=== PATIENT | female | born 1970 | race Caucasian/White ===

== ENCOUNTER 2016-04-11 18:28 | Emergency (ER) | payer MEDICARE, MEDICAID ==
[2016-04-11 19:13] VITALS: BP 126/69
--- NOTE | 2016-04-11 20:09 | UC ---
Headache HPI - HPI Summary HPI Summary: The patient comes in today for: 1. Headache: Onset: 2-3 hours ago. Palliative/provocative: Nothing makes it better or worse. Quality:Throbbing (but calmed down at this time). Region: Posterior head. Severity: Initially: 10/10 pain. Now she states that it is 7/10. She appears more like 4/10 since she is animated and laughing at times. Time: Constant. Associated symptoms: Fever: None. Weakness/numbness: none nor any focal neurologic complaint. Injury: None. Previous treatment: None. * - History Of Current Complaint Chief Complaint: UCGeneralIllness Stated Complaint: HEADACHE Time Seen by Provider: 04/11/16 19:59 Hx Obtained From: Patient Hx Last Menstrual Period: 04/04/16 ?: No - Allergies/Home Medications Allergies/Adverse Reactions: Allergies Allergy/AdvReac Type Severity Reaction Status Date / Time No Known Allergies Allergy Verified 12/29/12 12:18 Home Medications: Home Medications Aspirin [Eql Aspirin Low Dose] 81 mg PO DAILY 04/11/16 [History Confirmed ] Fluticasone-Salmeterol 100-50* [Advair Diskus 100-50*] 1 puff INH BID 04/11/16 [ History Confirmed 04/11/16] PMH/Surg Hx/FS Hx/Imm Hx Previously Healthy: No Endocrine History Of: Denies: Diabetes, Thyroid Disease Cardiovascular History Of: Denies: Cardiac Disorders, Hypertension, Pacemaker/ICD, Myocardial Infarction , Congestive Heart Failure, Atrial Fibrillation, Deep Vein Thrombosis, Bleeding Disorders Respiratory History Of: Reports: Asthma Denies: COPD GI/ History Of: Reports: Gastroesophageal Reflux Denies: Ulcer, Gastrointestinal Bleed, Gall Bladder Disease, Kidney Stones, Diverticulitis, Renal Disease, Urosepsis Neurological History Of: Reports: CVA - "I had a small stroke." Been on ASA ever since. Denies: TIA, Dementia, Seizures, Migraine Psychological History Of: Denies: Anxiety, Depression, Bipolar Disorder, Schizophrenia, Post Traumatic Stress Disorder Cancer History Of: Denies: Lung Cancer, Colorectal Cancer, Breast Cancer, Prostate Cancer, Cervical Cancer Other History Of: Anticoagulant Therapy - She takes asa daily. Negative For: HIV, Hepatitis B, Hepatitis C - Surgical History Surgical History: Yes Surgery Procedure, Year, and Place: TUBAL LIGATION, APPENDECTOMY,TONSILETOMY - Family History Known Family History: Positive: Cardiac Disease, Hypertension - Social History Occupation: Unemployed Alcohol Use: None Substance Use Type: None Smoking Status (MU): Never Smoked Tobacco Review of Systems Constitutional: Negative Skin: Negative Eyes: Negative ENT: Negative Respiratory: Negative Cardiovascular: Negative Gastrointestinal: Negative Genitourinary: Negative Neurological: Headache All Other Systems Reviewed And Are Negative: Yes Physical Exam Triage Information Reviewed: Yes Appearance: Well-Appearing, No Pain Distress, Well-Nourished Vital Signs: Initial Vital Signs Temp 98.1 F 04/11/16 19:07 Pulse 88 04/11/16 19:07 Resp 16 04/11/16 19:07 BP 126/69 04/11/16 19:07 Pulse Ox 100 04/11/16 19:07 Vital Signs Reviewed: Yes Eyes: Positive: Conjunctiva Clear. Negative: Discharge ENT: Positive: Hearing grossly normal. Negative: Pharyngeal erythema, Nasal congestion, Nasal drainage, TM bulging, TM dull, TM red, Tonsillar swelling, Tonsillar exudate Dental: Negative: Gross Decay/Caries @, Dental Fracture @ Neck: Positive: Supple, Nontender, No Lymphadenopathy. Negative: Nuchal Rigidity Respiratory: Positive: Chest non-tender, Lungs clear, No respiratory distress, No accessory muscle use. Negative: Crackles, Wheezing Cardiovascular: Positive: RRR, No Murmur Abdomen Description: Positive: Nontender, No Organomegaly, Soft. Negative: Distended, Guarding Musculoskeletal: Positive: Strength Intact, ROM Intact, No Edema Neurological: Positive: Alert, Muscle Tone Normal, Other: - Neurologic exam: Inspection: No fasciculations. Muscular tone: Normal Strength: Upper and lower extremities symmetrical and appropriate for age. Cranial nerves: II through XII were normal. Reflexes: Upper extremity: biceps: 2+/2 x 2, triceps: 2+/2 x 2, brachioradialis: 2+/2 x 2 Lower extremity: Patellar: 2+ /2 x 2, Achilles: 2+/2 x 2 Gait: Normal Coordination: Upper: Finger to nose and alternating palms on thighs: Normal Lower: Heel along martinse: Normal [place]: Normal Psychological: Positive: Age Appropriate Behavior, Consolable Skin: Negative: rashes, breakdown Headache Course/Dx - Course Course Of Treatment: Patient is not a canidate for NSAIDS because of being on aspirin. - Differential Dx/Diagnosis Differential Diagnosis/HQI/PQRI: Sinus Headache, Tension Headache Provider Diagnoses: Tension headache. Discharge - Discharge Plan Condition: Stable Disposition: HOME Patient Education Materials: General Headache (ED) Referrals: Melly Cain PA [Primary Care Provider] - 1 Week (Please see your primary care provider in about a week to see how well you are doing. If you get worse, please be seen sooner.)
== END 2016-04-11 20:35 | disposition home or self-care (01) ==
LOC: UCCORT 18:28
DX: G44.209 Tension-type headache, unspecified, not intractable (principal); Z79.82 Long term (current) use of aspirin
CPT/HCPCS: 99202; G0463

== ENCOUNTER 2017-10-29 09:46 | Emergency (ER) | payer MEDICARE, MEDICAID ==
[2017-10-29 10:08] VITALS: BP 129/83
--- NOTE | 2017-10-29 10:25 | ED ---
Throat Pain/Nasal Congestion - HPI Summary HPI Summary: 47 yr old female with the complaint of sinus pain, post nasal drip, green nasal discharge and now right ear pain. Onset over the past week. No fever or chills. No dizziness. She is a smoker. Symptoms are moderate. - History of Current Complaint Chief Complaint: UCGeneralIllness Time Seen by Provider: 10/29/17 10:17 - Allergies/Home Medications Allergies/Adverse Reactions: Allergies Allergy/AdvReac Type Severity Reaction Status Date / Time No Known Allergies Allergy Verified 10/29/17 10:08 PMH/Surg Hx/FS Hx/Imm Hx Endocrine/Hematology History: Reports: Hx Anticoagulant Therapy - She takes asa daily. Denies: Hx Diabetes, Hx Thyroid Disease Cardiovascular History: Denies: Hx Congestive Heart Failure, Hx Deep Vein Thrombosis, Hx Hypertension , Hx Myocardial Infarction, Hx Pacemaker/ICD Respiratory History: Reports: Hx Asthma Denies: Hx Chronic Obstructive Pulmonary Disease (COPD), Hx Lung Cancer GI History: Denies: Hx Gall Bladder Disease, Hx Gastrointestinal Bleed, Hx Ulcer, Hx Urosepsis History: Denies: Hx Kidney Stones, Hx Renal Disease Neurological History: Denies: Hx Dementia, Hx Migraine, Hx Seizures, Hx Transient Ischemic Attacks (TIA) Psychiatric History: Denies: Hx Anxiety, Hx Depression, Hx Schizophrenia, Hx Bipolar Disorder - Surgical History Surgery Procedure, Year, and Place: TUBAL LIGATION, APPENDECTOMY,TONSILETOMY Infectious Disease History: No Infectious Disease History: Denies: Hx Hepatitis, Hx Human Immunodeficiency Virus (HIV), Traveled Outside the [place] in Last 30 Days - Family History Known Family History: Positive: Cardiac Disease, Hypertension - Social History Occupation: Employed Full-time Alcohol Use: None Substance Use Type: Reports: None Smoking Status (MU): Never Smoked Tobacco Review of Systems Constitutional: Negative Positive: Ear Ache, Other - sinus pain All Other Systems Reviewed And Are Negative: Yes Physical Exam Triage Information Reviewed: Yes Vital Signs On Initial Exam: Initial Vitals Temp Pulse Resp BP Pulse Ox 97.7 F 69 18 129/83 99 10/29/17 10:02 10/29/17 10:02 10/29/17 10:02 10/29/17 10:02 10/29/17 10:02 Vital Signs Reviewed: Yes Appearance: Positive: Well-Appearing, No Pain Distress Skin: Positive: Warm, Skin Color Reflects Adequate Perfusion Head/Face: Positive: Normal Head/Face Inspection Eyes: Positive: EOMI ENT: Positive: Normal ENT inspection, Pharynx normal, TM red - right, Sinus tenderness. Negative: Muffled voice, Hoarse voice Neck: Positive: Nontender Respiratory/Lung Sounds: Positive: Clear to Auscultation, Breath Sounds Present Cardiovascular: Positive: RRR. Negative: Murmur Abdomen Description: Negative: CVA Tenderness (R), CVA Tenderness (L) Musculoskeletal: Positive: Strength/ROM Intact Neurological: Positive: Sensory/Motor Intact, Alert, Oriented to Person Place, Time, CN Intact II-III, Normal Gait, Speech Normal Psychiatric: Positive: Normal - [place] Coma Scale Best Eye Response: 4 - Spontaneous Best Motor Response: 6 - Obeys Commands Best Verbal Response: 5 - Oriented Coma Scale Total: 15 Diagnostics - Vital Signs Vital Signs Temp Pulse Resp BP Pulse Ox 10/29/17 10:02 97.7 F 69 18 129/83 99 - Laboratory Lab Statement: Any lab studies that have been ordered have been reviewed, and results considered in the medical decision making process. EENT Course/Dx - Course Course Of Treatment: 47 yr old female with sinusitis, and otitis media - Diagnoses Provider Diagnoses: Sinusitis, Otitis media Discharge - Sign-Out/Discharge Documenting (check all that apply): Patient Departure All imaging exams completed and their final reports reviewed: No Studies - Discharge Plan Condition: Good Disposition: HOME Prescriptions: Cefdinir [Cefdinir 300 MG CAP] 300 mg PO BID #20 cap Patient Education Materials: Ear Infection (ED), Sinusitis (ED) Referrals: Melly Cani PA [Primary Care Provider] - 2 Days - Billing Disposition and Condition Condition: GOOD Disposition: Home
== END 2017-10-29 10:26 | disposition home or self-care (01) ==
LOC: UCCORT 09:46
DX: J32.9 Chronic sinusitis, unspecified (principal); H66.91 Otitis media, unspecified, right ear
CPT/HCPCS: 99212; G0463

== ENCOUNTER 2018-05-28 11:34 | Emergency (ER) | payer MEDICARE, MEDICAID ==
[2018-05-28 12:06] VITALS: BP 120/80
--- NOTE | 2018-05-28 12:34 | UC ---
Throat Pain/Nasal Jagjit HPI - HPI Summary HPI Summary: Patient presents to urgent care reporting 10-11 days of progressive sinus pressure face pain postnasal drip. Patient states over the last 3 days is return to thick green with a little bit of bloody mucus. Patient states she's got a history of recurrent sinus infections and is supposed to have sinus surgery Dr. Asif but is resisting. Patient has been taking her Flonase as prescribed. Patient has not taken any other medication. Patient without any fevers. Patient with mild ear fullness and popping. No nausea vomiting. No abdominal pain. Patient states she's not pertinent care. Medications reviewed this visit. - History of Current Complaint Chief Complaint: UCGeneralIllness Stated Complaint: SINUS CONCERN Time Seen by Provider: 05/28/18 12:19 Hx Obtained From: Patient Hx Last Menstrual Period: 05/20/18 Pain Intensity: 4 - Allergies/Home Medications Allergies/Adverse Reactions: Allergies Allergy/AdvReac Type Severity Reaction Status Date / Time No Known Allergies Allergy Verified 10/29/17 10:08 Home Medications: Home Medications Ferrous Sulfate 325 mg PO DAILY 05/28/18 [History Confirmed 05/28/18] Lansoprazole CAP (NF) [Prevacid CAP (NF)] 20 mg PO DAILY 05/28/18 [History Confirmed 05/28/18] PMH/Surg Hx/FS Hx/Imm Hx Previously Healthy: Yes Other History Of: Anticoagulant Therapy - She takes asa daily. Negative For: HIV, Hepatitis B, Hepatitis C - Surgical History Surgical History: Yes Surgery Procedure, Year, and Place: TUBAL LIGATION, APPENDECTOMY,TONSILETOMY - Family History Known Family History: Positive: Cardiac Disease, Hypertension, Non-Contributory - Social History Occupation: Unemployed Lives: With Family Alcohol Use: Rare Substance Use Type: None Smoking Status (MU): Former Smoker When Did the Patient Quit Smoking/Using Tobacco: 2017 Review of Systems All Other Systems Reviewed And Are Negative: Yes Constitutional: Positive: Fatigue Skin: Positive: Negative Eyes: Positive: Negative ENT: Positive: Sore Throat, Ear Ache, Sinus Congestion Respiratory: Positive: Negative Cardiovascular: Positive: Negative Gastrointestinal: Positive: Negative Physical Exam - Summary Physical Exam Summary: Vital Signs Reviewed: Yes A+Ox3, no distress Eyes: Conjunctiva Clear, TALHA. EOM intact and full ENT: Hearing grossly normal scant fluid TM b/l, turbinates inflammed and boggy , thick green secretions + thick PND, + TTP max sinuses l>R clear, mmoist, uvula midline, no exudate, no erythema Neck: Positive: Supple Respiratory: Positive: No respiratory distress, No accessory muscle use + CTA throughout no w/r Cardiovascular: RRR nl s1, s2 no m/r CBT <2 sec abd soft + BS nt/nd no guarding, no distension Musculoskeletal Exam: [place] x 4 without difficulty Strength Intact, ROM Intact Neurological: Positive: Alert, + sensation throughout Psychological: Positive: Normal Response To Family Skin: Positive: no rash, no ecchymosis Triage Information Reviewed: Yes Vital Signs: Initial Vital Signs Temp 98.5 F 05/28/18 12:02 Pulse 71 05/28/18 12:02 Resp 16 05/28/18 12:02 BP 120/80 05/28/18 12:02 Pulse Ox 100 05/28/18 12:02 Throat Pain/Nasal Course/Dx - Course Course Of Treatment: Patient presents to urgent care with progressive sinus congestion facial pain and postnasal drip for the last 10-11 days. Patient states she's had thick green secretions with mild blood streaking over the last 3 days. Patient without nausea vomiting. A popping. On exam vital signs are stable. Examples with sinus infection. Patient previously seen by Dr. Asif supposed to have sinus surgery but resisting. Reviewed plan of care with patient. Patient has Flonase. We'll give prescription for Claritin. Recommend patient on antibiotic. Secretion precaution. Humidified air. Return precautions. Patient comfortable in agreement with plan. - Differential Dx/Diagnosis Provider Diagnosis: Rhinosinusitis Discharge - Sign-Out/Discharge Documenting (check all that apply): Patient Departure All imaging exams completed and their final reports reviewed: No Studies - Discharge Plan Condition: Stable Disposition: HOME Prescriptions: Amoxicillin PO (*) [Amoxicillin 500 MG CAP*] 500 mg PO Q12H #20 cap LoraTADine TAB(NF) [Claritin 10 MG TAB(NF)] 10 mg PO DAILY #30 tab Patient Education Materials: Rhinosinusitis (ED) Referrals: Melly Cain PA [Primary Care Provider] - Additional Instructions: - Stay well hydrated. Drink plenty of non-alcoholic, non-caffinated beverages. - Alternate ibuprofen (Advil, Motrin) 600mg and Tylenol every 3 hours for pain or fever. Take with food. Do NOT take for more than 4-5 days. - These infections are spread by secretions - do NOT share eating or drinking utensils - clean items you share with other people such as cell phones, computer mouse, TV remote, computer tablets,etc. Once you have been on antibiotics for 2 days, change your toothbrush and your pillowcase. - get plenty of restful sleep - humidify the air in the room where you sleep - boil water, run a hot steam shower, vaporizer, cups of water by heat register - okay to take over the counter decongestant and cough medication - use nasal spray as previously prescribed - contact your primary doctor or your ENT specialist with questions or concerns - Billing Disposition and Condition Condition: STABLE Disposition: Home
== END 2018-05-28 12:50 | disposition home or self-care (01) ==
LOC: UCCORT 11:34
DX: J01.90 Acute sinusitis, unspecified (principal); Z87.891 Personal history of nicotine dependence
CPT/HCPCS: 99212; G0463